=== PATIENT | female | born 1945 | race Native Hawaiian/Other Pacific Islander ===

== ENCOUNTER 2021-03-22 16:42 | Inpatient (IN) | payer OTHER, BC ==
[~2021-03-22] VITALS: Ht 157.5 cm; Wt 52.2 kg
[2021-03-22 17:57] VITALS: BP 168/74; TEMP 98.5; Ht 157.5 cm; Wt 52.2 kg
[2021-03-22 20:21] VITALS: BP 147/62; TEMP 98
[2021-03-23 08:00] VITALS: BP 191/78; TEMP 98.2
[2021-03-23] MEDS ORDERED: CITALOPRAM40 MG PO (08:23)
[2021-03-23] MEDS ORDERED: GABA300C2 PO (08:24)
[2021-03-23] MEDS ORDERED: HYDROCHLOROT12.5 M1 PO (08:26)
[2021-03-23] MEDS ORDERED: LOSA50TA PO (08:27)
[2021-03-23] MEDS ORDERED: OMEPRAZOLE40 MG PO (08:28)
[2021-03-23] MEDS ORDERED: SOTALOL HYDROCH80 MG PO (08:35)
[2021-03-23] MEDS ORDERED: TRAZODONE HYDR150 MG PO (08:37)
[2021-03-23] MEDS ORDERED: APAP325 MG PO (08:40)
[2021-03-23] MEDS ORDERED: ALBUTEROL0.083 % INH (08:42)
[2021-03-23] MEDS ORDERED: ENTERIC COATED325 MG PO (08:46)
[2021-03-23] MEDS ORDERED: CIPRO500 MG PO (08:47)
[2021-03-23] MEDS ORDERED: DOCU100C10 PO (08:49)
[2021-03-23] MEDS ORDERED: IPRASOL5 INH (08:50)
[2021-03-23] MEDS ORDERED: OXYC5TAB53 PO (08:51)
[2021-03-23] MEDS ORDERED: MAGNSUS68 PO (08:53)
[2021-03-23] MEDS ORDERED: NICODERM C21 MG/241 TD (08:55)
[2021-03-23 20:26] VITALS: BP 173/56; TEMP 98
[2021-03-24 08:00] VITALS: BP 177/74; TEMP 97.09
[2021-03-24 20:00] VITALS: BP 158/51; TEMP 98
[2021-03-25 08:00] VITALS: BP 168/73; TEMP 98
[2021-03-25 20:00] VITALS: BP 153/57; TEMP 98.2
[2021-03-26 08:00] VITALS: BP 181/68; TEMP 98.1
[2021-03-26 19:42] VITALS: BP 167/62; TEMP 97.6
[2021-03-27 08:00] VITALS: BP 172/70; TEMP 98.3
[2021-03-27 20:22] VITALS: BP 176/66; TEMP 97.9
[2021-03-28 08:00] VITALS: BP 176/73; TEMP 98.6
[2021-03-28 20:00] VITALS: BP 154/79; TEMP 98.4
[2021-03-29 08:00] VITALS: BP 136/64; TEMP 98
[2021-03-29 20:00] VITALS: BP 162/60; TEMP 98.3
[2021-03-30 08:00] VITALS: BP 177/69; TEMP 98.1
[2021-03-30 20:00] VITALS: BP 153/56; TEMP 98.7
[2021-03-31 08:00] VITALS: BP 163/57; TEMP 98
[2021-03-31 20:00] VITALS: BP 127/59; TEMP 97.7
[2021-04-01 08:00] VITALS: BP 150/54; TEMP 98.6
[2021-04-01 20:00] VITALS: BP 123/56; TEMP 98
[2021-04-02 08:00] VITALS: BP 170/65; TEMP 98.7
[2021-04-02 20:00] VITALS: BP 147/47; TEMP 98
[2021-04-03 08:00] VITALS: BP 148/55; TEMP 98.2
[2021-04-03 20:00] VITALS: BP 158/59; TEMP 97.7
[2021-04-04 08:00] VITALS: BP 158/58; TEMP 98.3
== END 2021-04-04 09:50 | disposition home health service (06) | DRG 560 ==
LOC: MED/SURG 16:42
PROVIDERS: ADMIT Internal Medicine; ATTEND Internal Medicine
DX: S72.141D Displaced intertrochanteric fracture of right femur, subsequent encounter for closed fracture with routine healing (principal); Z91.81 History of falling; M62.81 Muscle weakness (generalized); R26.81 Unsteadiness on feet; Z74.1 Need for assistance with personal care; J44.9 Chronic obstructive pulmonary disease, unspecified; I48.91 Unspecified atrial fibrillation; N39.0 Urinary tract infection, site not specified; G90.09 Other idiopathic peripheral autonomic neuropathy; F32.9 Major depressive disorder, single episode, unspecified; F41.9 Anxiety disorder, unspecified; F51.04 Psychophysiologic insomnia; F17.290 Nicotine dependence, other tobacco product, uncomplicated; K21.9 Gastro-esophageal reflux disease without esophagitis; I10 Essential (primary) hypertension; K59.00 Constipation, unspecified; R09.89 Other specified symptoms and signs involving the circulatory and respiratory systems
CPT/HCPCS: 87081; 94640; 94664; 94760